=== PATIENT | male | born 1990 | race Caucasian/White ===

== ENCOUNTER 2021-03-02 19:32 | Emergency (ER) | payer MEDICAID ==
[~2021-03-02] VITALS: Ht 177.8 cm; Wt 91.0 kg
[2021-03-02] MEDS ORDERED: KETOROLAC 60MG/2ML VIAL IM ONE (20:30)
[2021-03-02 20:37] VITALS: BP 130/88
[2021-03-02] MEDS ORDERED: IBUP-2029 MT (21:05)
== END 2021-03-02 21:33 | disposition home or self-care (01) ==
LOC: ER 19:32
DX: M25.562 Pain in left knee (principal); R03.0 Elevated blood-pressure reading, without diagnosis of hypertension; J45.909 Unspecified asthma, uncomplicated
CPT/HCPCS: 73560; 96372; 99283; J1885; Z7610